=== PATIENT | female | born 1960 | race Caucasian/White ===

== ENCOUNTER 2020-03-08 15:20 | Emergency (ER) | payer OTHER ==
[~2020-03-08 15:20] MED LIST: AZEL0.055; BENA25TA4 PO; DRIS50003 PO; FLUT1LOT; FLUT1LOT EX; MONT10TA4 PO; OMEP40CA97 PO; PATA2.5S; PSEU30TA21 PO; QVAR80AE10 IN; VOLT1GEL15 TD
[2020-03-08] MEDS ORDERED: propofoL 200 MG/20 ML VIAL As Ordered ONE (16:54)
[2020-03-08] MEDS ORDERED: fentaNYL 100 MCG/2 ML INJECTION (J3010) As Ordered ONE ×2 (16:54→17:47)
[2020-03-08] MEDS ORDERED: propofoL 200 MG/20 ML VIAL ONE (16:54)
[2020-03-08] MEDS ORDERED: ONDANSETRON 4MG/2ML VIAL ONE (16:54)
[2020-03-08] MEDS ORDERED: fentaNYL 100 MCG/2 ML INJECTION (J3010) ONE ×2 (16:54)
[2020-03-08] MEDS ORDERED: ONDANSETRON 4MG/2ML VIAL As Ordered ONE (16:55)
[2020-03-08] MEDS ORDERED: NORCO 5/325MG TABLET (BULK FOR ED) ONE (20:42)
[2020-03-08] MEDS ORDERED: NORCO 5/325MG TABLET (BULK FOR ED) As Ordered ONE (20:42)
[2020-03-12] MEDS ORDERED: PROL60SO SC (17:32)
[2020-03-12] MEDS ORDERED: MAPA500T2 PO (17:32)
[2020-03-12] MEDS ORDERED: CALC800P PO (17:32)
[2020-03-12] MEDS ORDERED: FAMO20TA PO (17:32)
[2020-03-12] MEDS ORDERED: D31000TA2 PO (17:32)
[2020-03-12] MEDS ORDERED: PROAAER10 INH (17:32)
--- NOTE | 2020-03-26 14:21 | ER ---
DATE: 03/08/2020 CHIEF COMPLAINT: Right ankle fracture dislocation. HISTORY OF PRESENT ILLNESS: This female stepped off a porch today at 2:30 p.m. She had twisting injury to her ankle. She sustained an ankle fracture dislocation. There was no loss of consciousness, chest pain, shortness of breath, or other injuries. She came to [facility] at the request of the emergency department physician. MEDICAL HISTORY: 1. Klippel Feil. 2. Asthma. 3. Blepharospasm. 4. Gastroesophageal reflux disease (GERD). MEDICATIONS: Vitamin D, Tylenol, GERD medications, and inhaler. ALLERGIES: To INTRAVENOUS (IV) IODINE and another medications she is unsure of. SURGICAL HISTORY: 1. Hernia repair. 2. Colonoscopy. 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 She is a nonsmoker. She does not use ambulatory aids. She was playing Frisbee today. PHYSICAL EXAMINATION: This is a well-appearing female who looks her stated age. She has an obvious deformity, closed injury to her right ankle. Skin is intact. No tenting. Normal sensation over the foot in the dorsal and plantar aspects. Foot is warm and well perfused. Strong dorsalis pedis pulses. She can wiggle her toes. No pain at the knee. Calf is soft. No pain in the foot. IMAGING DATA: Radiographs were reviewed, AP, lateral, and oblique of right ankle. There shows Rodrigues C bimalleolar ankle fracture with posterolateral subluxation of the talus. No obvious posterior malleolus fracture. Postreduction films were obtained AP, lateral of the ankle. It shows the talus down to the tibia without subluxation and good reduction of the fractures. ASSESSMENT AND PLAN: This 60-year-old female has an unstable right ankle bimalleolar fracture. We talked about pros, cons, risks, benefits, going ahead with closed reduction and casting. I performed that for her under conscious sedation this evening. I have asked her to followup in the clinic Tuesday morning to plan for surgical fixation, open reduction, internal fixation. She should rest, ice, elevate the leg and use oral pain control. I have communicated this to Dr. German, the emergency department physician. If she is unable to be discharged home safely and remain nonweightbearing, she will need to be admitted under the hospitalist service. PROCEDURE NOTE: I talked about the pros, cons, risks, benefits of going ahead with right ankle closed reduction and casting. Risks include, but not limited to, pain, stiffness, damage to surrounding structures, cast burn, cast irritation, failure to achieve or maintain reduction. She wished to go ahead and signed the consent form. Preprocedure time-out was performed. Sedation was achieved by Dr. German using a combination of fentanyl and propofol. Laid the patient down flat, flexed the head of the knee and then plantarflexed the foot. I used procedure mini C-arm fluoroscopy. I applied below-knee circumferential three-side plaster of Kamille splint, over-wrapped the splint with a 6-inch Jaden bandage. I performed molding to reduce the deformity in the standard fashion with upper pressure on the great toe, plantarflexion of the ankle, and medially- directed pressure over the distal fibula, counter pressure over just proximal to medial tibia. This achieved good reduction on LAURI and lateral radiographs. Cast was allowed to harden. She was neurovascularly intact afterward with normal sensation and capillary refill under 3 seconds at the toes. ABDULAZIZ
== END 2020-03-08 20:10 | disposition home or self-care (01) ==
LOC: M ED 15:20
DX: S82.851A Displaced trimalleolar fracture of right lower leg, initial encounter for closed fracture (principal); M25.561 Pain in right knee; X50.1XXA Overexertion from prolonged static or awkward postures, initial encounter; Y92.098 Other place in other non-institutional residence as the place of occurrence of the external cause; J45.909 Unspecified asthma, uncomplicated; K21.9 Gastro-esophageal reflux disease without esophagitis; M81.0 Age-related osteoporosis without current pathological fracture; Z91.041 Radiographic dye allergy status; Z88.8 Allergy status to other drugs, medicaments and biological substances
CPT/HCPCS: 27818; 73590; 73610; 96374; 99156; 99284; J2405; J3010

== ENCOUNTER 2020-03-13 09:43 | Day surgery (SDC) | payer OTHER ==
[~2020-03-13] VITALS: Ht 152.4 cm; Wt 63.0 kg
[~2020-03-13 09:43] MED LIST changes: +CALC800P PO; +D31000TA2 PO; +FAMO20TA PO; +MAPA500T2 PO; +PROAAER10 INH; +PROL60SO SC
[2020-03-13] MEDS ORDERED: dexameTHASONE 10MG/1ML VIAL PRES.FREE (J1100 PER 1MG) ONE (09:44)
[2020-03-13] MEDS ORDERED: LIDOCAINE 1% MDV 20ML VIAL ONE (09:44)
[2020-03-13] MEDS ORDERED: ROPIvacaine 0.5% 30ML INJECTION (J2795 PER 1MG) ONE (09:44)
[2020-03-13] MEDS ORDERED: ceFAZolin 2 GM/D5W 50 ML IV BAG (J0690 PER 500MG) As Ordered ONE (12:27)
[2020-03-13] MEDS ORDERED: LIDOCAINE 2% 100MG/5ML SDV (FOR ANES.) As Ordered ONE (14:11)
[2020-03-13] MEDS ORDERED: propofoL 200 MG/20 ML VIAL As Ordered ONE (14:11)
[2020-03-13] MEDS ORDERED: BUPIVACAINE HCL 0.25% 30ML VIAL As Ordered ONE (14:55)
[2020-03-13] MEDS ORDERED: MIDAZOLAM INJ 2MG/2ML VIAL (J2250 PER 1MG) As Ordered ONE (14:57)
[2020-03-13] MEDS ORDERED: fentaNYL 100 MCG/2 ML INJECTION (J3010) As Ordered ONE ×2 (15:00→16:52)
[2020-03-13] MEDS ORDERED: ACETAMINOPHEN 1000MG 100ML IV BTL (OFIRMEV) (J0131 PER 10MG) As Ordered ONE (15:24)
[2020-03-13] MEDS ORDERED: dexameTHASONE 4 MG/ML 1ML VIAL (J1100 PER 1MG) As Ordered ONE (15:30)
[2020-03-13] MEDS ORDERED: ONDANSETRON 4MG/2ML VIAL As Ordered ONE (15:30)
[2020-03-13] MEDS ORDERED: KETOROLAC 60MG 2ML VIAL As Ordered ONE (15:33)
[2020-03-13] MEDS: fentaNYL 100 MCG/2 ML INJECTION (J3010) IV PRN ×4 (16:50→17:05)
[2020-03-13] MEDS ORDERED: HYDROMORPHONE HCL 0.5 MG/ 0.5 ML SYRINGE (J1170 PER 1) As Ordered ONE (16:59)
[2020-03-13] MEDS ORDERED: MEPERIDINE INJ 25 MG/ML VIAL (J2175) As Ordered ONE (17:20)
[2020-03-13] MEDS ORDERED: oxyCODONE 5MG TAB As Ordered ONE (17:20)
[2020-03-13] MEDS: MEPERIDINE INJ 25 MG/ML VIAL (J2175) IV PRN ×2 (17:25→17:30)
[2020-03-13] MEDS ORDERED: PERCOCET 5MG/325MG TAB PO PRN (17:30)
[2020-03-13] MEDS ORDERED: ONDANSETRON 4MG/2ML VIAL IV PRN ×2 (17:30→18:00)
[2020-03-13] MEDS ORDERED: ACETAMINOPHEN TAB 650MG DOSE (2X325MG) PO PRN (17:30)
[2020-03-13] MEDS ORDERED: LR 1,000 ML IV SCH ×2 (17:30→18:00)
[2020-03-13] MEDS ORDERED: MORPHINE 2 MG/ML 1ML VIAL (J2270) IV PRN (17:30)
[2020-03-13] MEDS ORDERED: oxyCODONE 5MG TAB PO PRN (18:00)
[2020-03-13] MEDS ORDERED: METOCLOPRAMIDE INJ 10MG/2ML VIAL (J2765 PER 1) IV PRN (18:00)
[2020-03-13] MEDS ORDERED: HYDROMORPHONE HCL 0.5 MG/ 0.5 ML SYRINGE (J1170 PER 1) IV ONE (18:00)
[2020-03-13 20:00] VITALS: BP 132/77
--- NOTE | 2020-04-14 10:01 | REP ---
RIGHT ANKLE: 2-VIEWS HISTORY: Fracture. Intraoperative imaging. 1 minute 14 seconds of fluoroscopy time is reported. FINDINGS: A sequence of 2 last image hold fluoroscopically obtained spot radiographs of the right ankle document operative open reduction and internal fixation. ABDULAZIZ
--- NOTE | 2020-04-17 15:41 | ECGEPIP ---
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 SEE SCANNED DOWNTIME REPORT
--- NOTE | 2020-05-01 11:29 | RO ---
DATE OF OPERATION: 03/13/2020 PREOPERATIVE DIAGNOSIS: Right ankle fracture. POSTOPERATIVE DIAGNOSIS: Right ankle fracture. PLANNED PROCEDURE: Right ankle open reduction and internal fixation. PROCEDURE PERFORMED: Right ankle open reduction and internal fixation. SURGEON: Chad Gibson MD ANESTHESIOLOGIST: Dr. Coelho TARIFF CLERK: Rj Sexton ANESTHESIA: General anesthetic. OPERATIVE PREAMBLE: This 59-year-old female who sustained a slip and fall with injuries primarily a right ankle fracture with obvious destruction of syndesmosis. We talked about the pros, cons, risks, benefits of nonsurgical treatment versus ORIF. She wished to go ahead. We marked the right lower extremity. We checked the skin prior to surgery. It had normal wrinkles. She asked me a number of questions that I answered. We marked the right lower extremity and proceeded to surgery. OPERATIVE REPORT: The patient was brought to the operating room theater, administered general anesthetic. She was then placed supine on the operating room table. Two grams of IV Ancef was administered. A tourniquet was applied to the right thigh. Bone foam leg position was used, bone foam to the right hip. All bony prominences were appropriately padded. SCDs were used on the down leg and Jael Hugger. General anesthesia was induced. The limb was placed in the bone foam positioner. The limb was prepped and draped in the usual sterile fashion, allowing over three minutes prep solution drying time with chlorhexidine based prep solution. A preoperative time-out was performed, confirming the site, the patient, and surgery. The limb was elevated, tourniquet inflated to 250 mmHg. We made a standard 6 inch lateral incision over the distal fibula. We carried the dissection down through skin and subcutaneous tissue to achieve meticulous hemostasis, protecting the superficial peroneal nerve. I identified the fracture site, cleared away any interposed fracture hematoma and periosteum. I achieved an anatomic reduction using a pointed reduction forceps. There was one small area of comminution posterolaterally proximally. I used an intraop AP, lateral and oblique fluoroscopy to confirm anatomic reduction as well as direct visualization. I used a 3.5 mm lag screw with countersinking the screw in a standard lag screw fashion, overdrilling the proximal cortex with 3. 5 mm drill and distal cortex with a 2.5 mm drill. I placed a 20 mm long, 3.5 mm fully- threaded cortical lag screw. I removed the reduction clamps. This was stable and solid. I placed an 8-hole, 1/3 tubular plate precontoured posterolaterally at the fibula. I inserted three fully-threaded cortical screws 3.5 mm diameter, all 12 mm in length. I then inserted an 18 mm long, 4.0 mm, fully-threaded cancellous screw in the distal most hole. This achieved good reduction of the fibula as well as the medial malleolus and syndesmosis. Next, I turned my attention to the medial malleolus. I made a curvilinear incision about 2 inches long centered over the medial malleolus slightly anterior. I carried dissection down through skin and subcutaneous tissue, ensuring meticulous hemostasis. I ligated one crossing branch of the saphenous vein. I cleared away any interposed periosteum and fracture hematoma. I used a 2.0 mm drill bit proximal to the fracture site and then used a point of reduction forceps to achieve anatomic reduction. I passed the two guide pins parallel on AP and lateral radiographs across the medial malleolus, ensuring stability of the joint. I then overdrilled the proximal cortex and then passed two 46 mm long, partially-threaded cancellous 4.0 mm cannulated screws. The guidewires were removed. Final radiographs were taken. The syndesmosis was obviously wide. I then turned my attention back to the lateral side. I passed two 3.5 mm fully-threaded cortical screws across the level of the syndesmosis. These measured 55 mm long distally and 50 mm proximally. Cotton test was performed and the mortise was stable. As I was passing the screws and reducing the syndesmosis, I used direct visualization as well as the foot in neutral and a hand clamping across the syndesmosis, ensuring to not overtighten it. I thoroughly irrigated the wounds. Tourniquet was let down at 60 minutes. The subcutaneous tissue was closed with interrupted 2-0 Vicryl sutures and the skin with marilia. The skin was cleaned with wet-and-dry dressing. Ten mL of 1/4% Marcaine were instilled in and around the incision sites. Adaptic, 4x8 gauze and then ABD dressing was then placed, overwrapped with sterile cast padding. A three-sided plaster of Kamille splint was then fashioned with the foot in neutral, overwrapped with sterile 6-inch Jaden bandage. The patient was transferred off the operating table after woken up from general anesthetic, transferred to the PACU in stable condition. All sponge, needle, and instrument counts were correct. No complications. Estimated blood loss: 50 cc. Plan is for the patient to be nonweightbearing for six week, to be discharged home according to day surgery criteria and follow up in the office in two weeks time. Rj Sexton as the legal assistant was instrumental in achieving visualization, holding retractors, getting the reduction and completing the case. ABDULAZIZ
== END 2020-03-13 20:30 | disposition home or self-care (01) ==
LOC: M SDC 09:43
PROVIDERS: ATTEND Orthopaedic Surgery Sports Medicine
DX: S82.61XA Displaced fracture of lateral malleolus of right fibula, initial encounter for closed fracture (principal); W19.XXXA Unspecified fall, initial encounter; Y92.89 Other specified places as the place of occurrence of the external cause; Y93.9 Activity, unspecified; Y99.9 Unspecified external cause status; Q76.1 Klippel-Feil syndrome; Z91.041 Radiographic dye allergy status; Z91.013 Allergy to seafood; Z88.8 Allergy status to other drugs, medicaments and biological substances; Z79.899 Other long term (current) drug therapy
CPT/HCPCS: 27792; 27829; 64445; 76000; 93005; C1713; J0131; J1100; J1170; J1885; J2175; J2250; J2405; J2795; J3010

== ENCOUNTER → 2020-05-23 | Outpatient (REF) | payer OTHER | LOC: M LAB REF 16:29 | PROVIDERS: ATTEND Nurse Practitioner Adult Health | DX: Z51.81 Encounter for therapeutic drug level monitoring (principal) ==

== ENCOUNTER → 2020-05-28 | Outpatient (REF) | payer OTHER ==
[2020-05-30 16:08] LABS: Lyme Disease IgG/IgM Antibodie <0.91 ISR (0.00-0.90); Lyme Disease IgM Ab Quantitati <0.80 index (0.00-0.79)
== END ==
LOC: M LAB REF 16:44
PROVIDERS: ATTEND Nurse Practitioner Adult Health
DX: Z11.59 Encounter for screening for other viral diseases (principal)

== ENCOUNTER → 2020-12-11 | Outpatient (REF) | payer OTHER ==
[~2020-12-11] MED LIST changes: +MONT10TA10 PO; -MONT10TA4 PO
== END ==
LOC: M LAB REF 12:15
PROVIDERS: ATTEND Nurse Practitioner Adult Health
DX: Z79.899 Other long term (current) drug therapy (principal)

== ENCOUNTER → 2021-06-16 | Outpatient (CLI) | payer OTHER ==
[~2021-06-16] MED LIST changes: +OMEP40CA4 PO; -OMEP40CA97 PO
--- NOTE | 2021-06-16 11:30 | REP ---
INDICATION: ELEVATED LFT'S COMPARISON: None. TECHNIQUE: Real time john scale ultrasound examination using curved array transducer. FINDINGS: Liver and pancreas are normal in contour, size, and echogenicity without focal hepatic or pancreatic lesions identified. The gallbladder is normal and without gallstones, wall thickening, or pericholecystic fluid. No biliary ductal dilatation is appreciated and the common bile duct measures 2.5 mm diameter. Right kidney is surgically absent. No ascites in the visualized right upper quadrant. IMPRESSION: Normal limited right upper quadrant ultrasound. Right kidney is surgically absent. <Electronically signed by Juan Tan > 06/16/21 112
== END ==
LOC: M RAD 08:36
PROVIDERS: ATTEND Nurse Practitioner Adult Health
DX: R79.89 Other specified abnormal findings of blood chemistry (principal); Z90.5 Acquired absence of kidney

== ENCOUNTER → 2021-06-26 | Outpatient (REF) | payer OTHER ==
[2021-06-26 12:46] LABS: HEMATOCRIT 45.2 % (36.0-47.0)
[2021-06-26 13:13] LABS: IRON (FE) 110 UG/DL (50-170); PERCENT SATURATION 40.4 % (13.2-45.0); PHOSPHORUS LEVEL 2.7 MG/DL (2.5-4.9); TOTAL IRON BINDING CAPACITY 272 UG/DL (250-450)
[2021-06-26 13:33] LABS: HEPATITIS B SURFACE ANTIGEN NEGATIVE (NEGATIVE)
[2021-06-26 14:01] LABS: HEPATITIS B CORE ANTIBODY IGM NEGATIVE (NEGATIVE); HEPATITIS C VIRUS ABY INDEX 0.1 INDEX (<0.8)
[2021-06-27 15:07] LABS: ANTINUCLEAR ANTIBODIES DIRECT Negative (Negative)
== END ==
LOC: M LAB REF 12:19
PROVIDERS: ATTEND Internal Medicine
DX: R74.01 Elevation of levels of liver transaminase levels (principal)

== ENCOUNTER → 2021-12-02 | Outpatient (CLI) | payer OTHER ==
[~2021-12-02] MED LIST changes: -D31000TA2 PO; -MONT10TA10 PO; +MONT10TA97 PO; +VITA100093 PO
== END ==
LOC: M WUC 09:09
PROVIDERS: ATTEND Nurse Practitioner Adult Health
DX: R06.02 Shortness of breath (principal)

== ENCOUNTER → 2021-12-30 | Outpatient (REF) | payer OTHER | LOC: M LAB REF 12:21 | PROVIDERS: ATTEND Nurse Practitioner Adult Health | DX: M81.0 Age-related osteoporosis without current pathological fracture (principal); Z51.81 Encounter for therapeutic drug level monitoring; Z79.899 Other long term (current) drug therapy ==

== ENCOUNTER → 2025-06-04 | Outpatient (CLI) | payer OTHER ==
[~2025-06-04] MED LIST changes: -AZEL0.055; +AZEL1SPR4; +DENO60SY2 SC; -PROL60SO SC
== END ==
LOC: M WUC 10:02
PROVIDERS: ATTEND Nurse Practitioner Adult Health
DX: R06.02 Shortness of breath (principal)